=== PATIENT | male | born 1950 | race Caucasian/White ===

== ENCOUNTER 2019-10-20 16:58 | Outpatient (RCR) | payer MEDICARE, OTHER, SELFPAY | END 2019-11-16 00:01 | LOC: WPT 16:58 | PROVIDERS: Family Provider Physician Assistant Medical; Visit Provider Physician Assistant Medical | DX: M54.2 Cervicalgia (principal); M25.511 Pain in right shoulder; M54.5 Low back pain; V89.2XXD Person injured in unspecified motor-vehicle accident, traffic, subsequent encounter | CPT/HCPCS: 97110 ×6; 97140 ×2; 97163; G0283 ×4; 97032 ==

== ENCOUNTER 2019-11-17 06:00 | Outpatient (RCR) | payer MEDICARE, OTHER, SELFPAY | END 2019-12-17 23:59 | disposition home or self-care (01) | LOC: WPT 06:00 | PROVIDERS: Family Provider Physician Assistant Medical; PCP Nurse Practitioner; Visit Provider Physician Assistant Medical | DX: M54.2 Cervicalgia (principal); M25.511 Pain in right shoulder; H81.399 Other peripheral vertigo, unspecified ear | CPT/HCPCS: 97032; 97110; 97112; 97140; 97150; 97164; G0283 ==

== ENCOUNTER → 2022-05-07 15:56 | Outpatient (BNVA) | payer OTHER, SELFPAY | PROVIDERS: Family Provider Physician Assistant Medical; PCP Family Medicine; Visit Provider Internal Medicine Cardiovascular Disease | DX: R06.02 Shortness of breath (principal); R00.0 Tachycardia, unspecified; J84.9 Interstitial pulmonary disease, unspecified; R07.9 Chest pain, unspecified; I11.0 Hypertensive heart disease with heart failure; I50.33 Acute on chronic diastolic (congestive) heart failure; Z87.891 Personal history of nicotine dependence | CPT/HCPCS: 80048; 83880; 93005; 93229; 99204 ==

== ENCOUNTER 2022-07-01 10:47 | Outpatient (CLI) | payer OTHER, MEDICARE, SELFPAY ==
--- NOTE | 2022-07-01 11:45 | USCV_ITS ---
Celso Bundy Age: 72 Gender: M : 1950 Exam Date: 07/01/2022 11:12 Ordering Phys: Cuca Hoffmann MD ([email or web address]) Technologist: Sarah Burleson [place] [facility] [place]ication: sob BP: 118 / 78 HR: 48 Rhythm: Sinus Technical Quality: Adequate MEASUREMENTS (Male / Female) Normal Values 2D ECHO LV Diastolic Diameter PLAX 5.9 cm 4.2 - 5.9 / 3.9 - 5.3 cm LV Systolic Diameter PLAX 3.7 cm IVS Diastolic Thickness 1.1 cm 0.6 - 1.0 / 0.6 - 0.9 cm IVS Systolic Thickness 1.3 cm LVPW Diastolic Thickness 1.0 cm 0.6 - 1.0 / 0.6 - 0.9 cm LVPW Systolic Thickness 1.7 cm LVOT Diameter 2.1 cm LV Ejection Fraction 2D Teich 67.2 % LV Ejection Fraction MOD 2C 76.3 % LV Ejection Fraction 2C AL 79.0 % LA Diameter 3.0 cm LA Width 3.5 cm LA Height 5.2 cm RA Width 2.7 cm RA Height 4.7 cm Aorta at Sinotubular Diameter 2.9 cm IVC Diameter 1.3 cm M-MODE MV E Point Septal Separation 0.7 cm DOPPLER AV Peak Velocity 126.0 cm/s LVOT Peak Velocity 117.0 cm/s AV Area Cont Eq vti 2.9 cm squared AV Area Cont Eq pk 3.1 cm squared MV Peak Velocity 98.0 cm/s MV Area PHT 3.1 cm squared Mitral E to A Ratio 9.2 MV E' Velocity 47.5 cm/s Mitral E to MV E' Ratio 10.6 Mitral E to LV E' Lateral Ratio 9.2 Mitral E to LV E' Septal Ratio 12.4 TR Peak Velocity 73.0 cm/s TR Peak Gradient 2.1 mmHg Right Atrial Pressure 3.0 mmHg Pulmonary Artery Systolic Pressu 5.1 mmHg PV Peak Velocity 72.0 cm/s RV Acceleration Time 0.2 s RV Ejection Time 0.3 s RV AcT/ET 0.5 FINDINGS Left Ventricle Normal left ventricular size and systolic function, EF 75 %. No regional wall motion abnormalities. Right Ventricle The right ventricle is normal in size and function. Right Atrium The right atrium is normal in size. Left Atrium The left atrium is normal in size. Mitral Valve No gross abnormalities noted Aortic Valve No gross abnormalities noted Tricuspid Valve No gross abnormalities noted Pulmonic Valve Pulmonic valve not well visualized. Pericardium Normal pericardium without effusion. Aorta Normal aortic annulus size. IVC Normal inferior vena cava. CONCLUSIONS Normal left ventricular size and systolic function, EF 75 %. No regional wall motion abnormalities. Normal cardiac chamber sizes. No gross valvular abnormalities. There is no pericardial effusion. There are no intracardiac masses. No similar previous studies are available for comparison Dr Cuca Hoffmann MD FACC (Electronically Signed) Final Date: 01 July 2022 23:11 S
== END 2022-07-01 10:48 | disposition home or self-care (01) ==
PROVIDERS: PCP Family Medicine; Visit Provider Internal Medicine Cardiovascular Disease
DX: R06.02 Shortness of breath (principal); R06.00 Dyspnea, unspecified
CPT/HCPCS: 93306

== ENCOUNTER → 2022-07-02 13:53 | Outpatient (BNVA) | payer OTHER, SELFPAY | PROVIDERS: PCP Family Medicine; Visit Provider Nurse Practitioner Family | DX: R00.0 Tachycardia, unspecified (principal) | CPT/HCPCS: 99213 ==

== ENCOUNTER → 2022-09-24 11:08 | Outpatient (BNVA) | payer OTHER, SELFPAY | PROVIDERS: PCP Family Medicine; Visit Provider Internal Medicine Cardiovascular Disease | DX: R07.89 Other chest pain (principal); R00.0 Tachycardia, unspecified; R06.02 Shortness of breath; J84.9 Interstitial pulmonary disease, unspecified; Z87.891 Personal history of nicotine dependence | CPT/HCPCS: 99214 ==

== ENCOUNTER 2023-01-02 10:26 | Outpatient (CLI) | payer OTHER, SELFPAY ==
--- NOTE | 2023-01-02 11:14 | ECG_ITS ---
[facility] Test Date: 2023-01-02 Pat Name: Celso Bundy Department: Room: Gender: Male Java Web Architect: Ally Kasper : 1950 Requested By: Cuca Hoffmann Order Number: [id number] Kane MD: Cuca Hoffmann M.D. Interpretive Statements NAME OF STUDY: LEXISCAN SESTAMIBI STRESS TEST INDICATION: Chest Pain, PROCEDURE: At the baseline, the EKG revealed sinus bradycardia with a rate of [address]-T changes. Normal TN and QRS duration. The baseline heart was 49 bpm with a blood pressue of 135/88 mm of Hg Lexiscan was infused over a period of 20 seconds. A total of 0.4 milligrams of Lexiscan was infused. The stress phase was continued for a total of 5 minutes. Heart rate at the end of the stress phase was 58 bpm with a blood pressure 130/71 mm of Hg. The EKG at the peak infusion revealed no significant changes. Sestamibi was injected 20 seconds after the Lexiscan infusion. Heart rate at the end of the recovery phase was 55 bpm with a blood pressure of 122/72 mm of Hg. CONCLUSION: 1. No significant EKG changes with the LexiScan infusion 2. No LexiScan induced chest pain or cardiac arrhythmia 3. Normal blood pressure and heart rate response 4. Sestamibi/sestamibi perfusion scan pending; see separate report. Electronically Signed On 01-18-2023 14:14:29 [employer] by Cuca Hoffmann M.D. [email or web address]
--- NOTE | 2023-01-02 11:15 | NMCV_ITS ---
NM vickey perf SPECT r/s* [id number] Celso Bundy Age: 72 Gender: M : 1950 Exam Date: 01/02/2023 12:09 Ordering Phys: Cuca Hoffmann MD ([email or web address]) Technologist: SHIRA Fletcher Exam Location: [facility] Indications: CORONARY ANGIOPLASTY STATUS STRESS TEST [facility] IMAGE PROTOCOL Rest/Stress 1 Lexiscan Day Radiopharmaceutical Dose (mCi) Administration Site Administered by Rest: Tc-99m 10.8 IV SHIRA Argueta Sestamibi Stress:Tc-99m 32.4 IV SHIRA Fletcher Sestamikarson Rest: 02-Jan-2023 60 Discovery 630 Stress: 02-Jan-2023 30 Discovery 630 0.4mg Lexiscan. Images obtained in supine and prone position. SPECT RESULTS Technical Quality: Excellent Raw Data Analysis: Normal Image Corrections: No attenuation or motion correction applied Summed Stress Score: 6 Summed Rest Score: 6 Summed Difference Score: 1 PERFUSION FINDINGS Small to moderate area of moderately decreased tracer uptake was noted in the mid inferolateral, apical lateral, apical inferior and LV apex. Some reversibility was noted in the apical inferior region FUNCTIONAL RESULTS (calculated via Gated SPECT) Stress Image LV EF (%): 61 Stress EDV (mL):171 TID: 1.22 Stress ESV (mL):66 FUNCTIONAL FINDINGS: Segmental wall motion analysis revealing no gross wall motion abnormalities. The transient ischemic dilatation ratio was found to be elevated to 1.22 IMPRESSIONS 1. Myocardial perfusion imaging revealing small to moderate area of moderately decreased tracer uptake in the inferolateral and apical regions with a small area of reversibility, suggesting myocardial scarring with a subtle area of ischemia, predominantly in the circumflex artery distribution. 2. Normal LV ejection fraction of 61%. 3. LV wall motion analysis revealing no gross wall motion abnormalities. 4. LV volume, mildly dilated LV cavity. No similar previous studies are available for comparison Dr Cuca Hoffmann MD FACC (Electronically Signed) Final Date: 03 January 2023 14:12 S
[2023-01-02 11:16] VITALS: BMI 35.2
[2023-01-02] MEDS: regadenoson 0.4 Mg/5 ml Syringe IVP (12:45)
[2023-01-02 12:56] VITALS: BP 122/72; PULSE 55
== END 2023-01-02 10:27 | disposition home or self-care (01) ==
LOC: CDL 10:29
PROVIDERS: PCP Family Medicine; Visit Provider Internal Medicine Cardiovascular Disease
DX: R07.9 Chest pain, unspecified (principal); Z95.5 Presence of coronary angioplasty implant and graft; R06.02 Shortness of breath
CPT/HCPCS: 36415; 78452; 93017; 96375; A9500; J2785

== ENCOUNTER → 2023-01-22 14:20 | Outpatient (BNVA) | payer OTHER, SELFPAY | PROVIDERS: PCP Family Medicine; Visit Provider Nurse Practitioner Family | DX: I10 Essential (primary) hypertension (principal); R06.02 Shortness of breath; R00.0 Tachycardia, unspecified; J84.9 Interstitial pulmonary disease, unspecified; R07.9 Chest pain, unspecified; Z87.891 Personal history of nicotine dependence | CPT/HCPCS: 36415; 80048; 83880; 99214 ==

== ENCOUNTER 2023-02-18 14:20 | Outpatient (CLI) | payer OTHER, SELFPAY ==
--- NOTE | 2023-02-18 14:30 | USCV_ITS ---
Celso Bundy Age: 72 Gender: M : 1950 Exam Date: 02/18/2023 14:32 Ordering Phys: Gifty Francisco Technologist: Exam Location: [facility] [place] Indication: abnormal rythym BP: 140 / 83 HR: 65 Rhythm: Sinus Technical Quality: Adequate MEASUREMENTS (Male / Female) Normal Values 2D ECHO LV Diastolic Diameter PLAX 5.2 cm 4.2 - 5.9 / 3.9 - 5.3 cm LV Systolic Diameter PLAX 3.6 cm IVS Diastolic Thickness 1.8 cm 0.6 - 1.0 / 0.6 - 0.9 cm IVS Systolic Thickness 1.5 cm LVPW Diastolic Thickness 1.5 cm 0.6 - 1.0 / 0.6 - 0.9 cm LVPW Systolic Thickness 2.0 cm LVOT Diameter 2.1 cm LV Ejection Fraction 2D Teich 59.0 % LV Ejection Fraction MOD 2C 72.6 % LV Ejection Fraction 2C AL 72.9 % LA Diameter 4.4 cm Aorta at Sinotubular Diameter 3.0 cm M-MODE Aortic Annulus Diameter 4.4 cm LA Ao Ratio MM 1.1 MV E Point Septal Separation 1.4 cm DOPPLER AV Peak Velocity 141.0 cm/s LVOT Peak Velocity 107.0 cm/s AV Area Cont Eq vti 2.4 cm squared AV Area Cont Eq pk 2.6 cm squared MV Area PHT 5.1 cm squared Mitral E to A Ratio 0.7 MV E' Velocity 40.0 cm/s Mitral E to MV E' Ratio 7.1 Mitral E to LV E' Lateral Ratio 8.0 Mitral E to LV E' Septal Ratio 6.4 TR Peak Velocity 148.3 cm/s TR Peak Gradient 8.8 mmHg TV Peak E Velocity 84.0 cm/s Right Atrial Pressure 3.0 mmHg Pulmonary Artery Systolic Pressu 11.8 mmHg RV Acceleration Time 0.2 s FINDINGS Left Ventricle Normal normal left ventricular size and systolic function, EF 68 %. No regional wall motion abnormalities. Grade I/IV diastolic dysfunction (abnormal relaxation filling pattern), normal to mildly elevated filling pressures. Right Ventricle The right ventricle is normal in size and function. Right Atrium The right atrium is normal in size. Left Atrium The left atrium is normal in size. Mitral Valve Normal. Mild mitral valve regurgitation. Aortic Valve No gross abnormalities noted Tricuspid Valve No gross abnormalities noted Pulmonic Valve Pulmonic valve not well visualized. Pericardium Normal pericardium without effusion. Aorta Normal ascending aorta dimension. IVC Inferior vena cava not visualized. CONCLUSIONS Normal left ventricular size and systolic function, EF 68 %. No regional wall motion abnormalities. Grade I/IV diastolic dysfunction (abnormal relaxation filling pattern), normal to mildly elevated filling pressures. Mild mitral valve regurgitation. There is no pericardial effusion. There are no intracardiac masses. Compared to the study from 07/01/2022, there may not be a significant change Dr Cuca Hoffmann MD FACC (Electronically Signed) Final Date: 26 February 2023 02:14 S
== END 2023-02-18 14:21 | disposition home or self-care (01) ==
LOC: RAD 14:22
PROVIDERS: PCP Family Medicine; Visit Provider Nurse Practitioner Family
DX: R06.02 Shortness of breath (principal); I34.0 Nonrheumatic mitral (valve) insufficiency
CPT/HCPCS: 93306

== ENCOUNTER → 2023-05-28 08:09 | Outpatient (BNVA) | payer OTHER, SELFPAY | PROVIDERS: PCP Family Medicine; Visit Provider Specialist | DX: M75.01 Adhesive capsulitis of right shoulder; S49.91XA Unspecified injury of right shoulder and upper arm, initial encounter; M19.011 Primary osteoarthritis, right shoulder; X50.0XXA Overexertion from strenuous movement or load, initial encounter | CPT/HCPCS: 99204 ==

== ENCOUNTER → 2023-05-28 08:19 | Outpatient (BNVA) | payer OTHER, SELFPAY | PROVIDERS: PCP Family Medicine; Visit Provider Specialist | DX: S49.91XA Unspecified injury of right shoulder and upper arm, initial encounter (principal); M75.01 Adhesive capsulitis of right shoulder; M19.011 Primary osteoarthritis, right shoulder; X50.0XXA Overexertion from strenuous movement or load, initial encounter | CPT/HCPCS: 73030 ==

== ENCOUNTER 2023-06-20 13:05 | Outpatient (CLI) | payer OTHER, SELFPAY ==
--- NOTE | 2023-06-20 13:14 | MR_ITS ---
WS: [id number] MRI RIGHT SHOULDER ARTHROGRAM TECHNIQUE: Sagittal T2, coronal T1, T2 and proton density imaging. Axial gradient PDE imaging. CLINICAL INFORMATION: SHOULDER INJURY COMPARISON: None. FINDINGS: Post arthrogram images demonstrate high-grade full-thickness tear involving the supraspinat us approximately 3.3 cm from the insertion with dissecting contrast. Tendon widening measuring 9 mm. Partial-thickness longitudinal tear involving the infraspinatus. Small insertional tear at the distal infraspinatus. Visually small shoulder capsule compatible with adhesive capsulitis. Tiny tear involv ing the anterior glenoid labrum with a tiny amount of fissuring. Moderate degenerative arthritis AC joint. Slight subacromial spurring. Impingement on the distal supr aspinatus. Normal teres minor. Small longitudinal tear distal subscapularis tendon which remains inta ct. Normal biceps in the bicipital groove. Small intrasubstance tear involving the intra-articular bi ceps tendon which remains intact. Subacromial fluid and fluid in the AC joint. T2 signal abnormality compatible with tendinopathy in the supraspinatus and infraspinatus. Advanced degenerative arthritis glenohumeral articulation. Biceps labral anchor appears intact. Dimin utive joint capsule can be seen with adhesive capsulitis in appropriate clinical setting. Small amoun t of edema in the rotator interval. MR/MR shoulder RT wo/w con [id number] IMPRESSION: 1. Moderate degenerative arthritis AC joint with edema and mild downsloping of the acromion. Impingement on the supraspinatus. 2. High-grade tear involving the distal anterior supraspinatus approximately 3 .3 cm from the insertion. Tendon retraction measures approximately 0.9 cm 3. Tendinopathy in the supraspinatus and infraspinatus. 4. Partial-thickness longitudinal tear involving the infraspinatus. Insertiona l tear at the distal infraspinatus. 5. Tiny tear involving the anterior glenoid labrum with a tiny amount of fissu ring. 6. Small longitudinal tear involving the distal subscapularis tendon which rem ains intact. 7. Additional small intrasubstance tear involving the intra-articular biceps t endon with a small amount of T2 signal abnormality. 8. Additional findings of adhesive capsulitis.
--- NOTE | 2023-06-20 13:45 | IR_ITS ---
WS: [id number] SHOULDER ARTHROGRAM RIGHT Fluoroscopic guided right shoulder arthrogram CLINICAL INFORMATION: SHOULDER INJURY COMPARISON: None. PROCEDURE: The procedure including risks, benefits and complications were discussed with the patient, who agreed to proceed. Using sterile technique, the patient was prepped and draped in the usual ster ile fashion. After 1% lidocaine injection using fluoroscopic guidance, a 22-gauge spinal needle was a dvanced into the glenohumeral joint. Approximately 13 ml of a solution containing 10 ml normal saline , 5 ml Omnipaque 240, 5 ml 1% lidocaine, and 0.1 ml gadolinium was administered. No immediate complic ations. FLUOROSCOPY TIME: 1min [id number] # of spot films: 3 IR/IR arthrogram shoulderRT [id number] IMPRESSION: Uncomplicated fluoroscopic-guided right shoulder arthrogram. MRI to follow.
== END 2023-06-20 13:06 | disposition home or self-care (01) ==
LOC: RAD 13:05
PROVIDERS: PCP Family Medicine; Visit Provider Specialist
DX: M75.101 Unspecified rotator cuff tear or rupture of right shoulder, not specified as traumatic (principal); M19.019 Primary osteoarthritis, unspecified shoulder; M75.01 Adhesive capsulitis of right shoulder; M67.911 Unspecified disorder of synovium and tendon, right shoulder; S46.811A Strain of other muscles, fascia and tendons at shoulder and upper arm level, right arm, initial encounter; S46.211A Strain of muscle, fascia and tendon of other parts of biceps, right arm, initial encounter; X58.XXXA Exposure to other specified factors, initial encounter
CPT/HCPCS: 23350; 73223; 77002; 99204; Q9966

== ENCOUNTER → 2023-07-16 13:51 | Outpatient (BNVA) | payer OTHER, SELFPAY | PROVIDERS: PCP Family Medicine; Visit Provider Nurse Practitioner Family | DX: M75.01 Adhesive capsulitis of right shoulder (principal); M75.101 Unspecified rotator cuff tear or rupture of right shoulder, not specified as traumatic; M25.811 Other specified joint disorders, right shoulder; S46.111A Strain of muscle, fascia and tendon of long head of biceps, right arm, initial encounter; M19.011 Primary osteoarthritis, right shoulder; S49.90XA Unspecified injury of shoulder and upper arm, unspecified arm, initial encounter; X50.0XXA Overexertion from strenuous movement or load, initial encounter | CPT/HCPCS: 99214 ==